=== PATIENT | female | born 1990 | race Caucasian/White ===

== ENCOUNTER 2020-11-14 07:52 | Day surgery (SDC) | payer OTHER ==
[2020-11-14] MEDS ORDERED: Ondansetron PF 4 MG/2 ML Vial IVP PRN (08:50)
[2020-11-14] MEDS ORDERED: hydrALAZINE 20 MG/ML VIAL SLOW IVP PRN (08:50)
[2020-11-14] MEDS ORDERED: Lactated Ringer's 1,000 ML IV SCH (09:00)
== END 2020-11-14 11:30 | disposition home or self-care (01) ==
LOC: CSHERS 07:52 → CSHLD/OP 07:52 → EDSTATUS 08:15 → CSHLD/OP 11:30
DX: O99.613 Diseases of the digestive system complicating pregnancy, third trimester (principal); K52.9 Noninfective gastroenteritis and colitis, unspecified; O34.211 Maternal care for low transverse scar from previous cesarean delivery; Z3A.00 Weeks of gestation of pregnancy not specified
CPT/HCPCS: 96360; 96361; 99282